=== PATIENT | female | born 1960 | race Caucasian/White ===

== ENCOUNTER 2019-05-02 07:10 | Day surgery (SDC) | payer OTHER, BC ==
[2019-05-02] MEDS ORDERED: PROPOFOL 200 MG INJ (08:41)
[2019-05-02] MEDS ORDERED: LIDOCAINE 2% (SDV) 5 ML INJ (08:41)
[2019-05-02] MEDS ORDERED: GLYCOPYRROLATE 0.4 MG INJ (08:41)
== END 2019-05-02 12:49 | disposition home or self-care (01) ==
LOC: GIL 07:10
DX: D12.2 Benign neoplasm of ascending colon (principal); K29.50 Unspecified chronic gastritis without bleeding; I10 Essential (primary) hypertension; E78.5 Hyperlipidemia, unspecified; K20.8 Other esophagitis
CPT/HCPCS: 43239; 82962; 88305; 88312; 88313